=== PATIENT | female | born 1945 | race Caucasian/White ===

== ENCOUNTER 2019-10-04 09:08 | Outpatient (CLI) | payer MEDICARE, SELFPAY ==
--- NOTE | 2019-10-04 09:11 | MM_ITS ---
WS: [id number] BILATERAL DIGITAL SCREENING MAMMOGRAPHY WITH CAD CLINICAL INFORMATION: SCREENING HISTORY: Screening mammogram. No current complaints. COMPARISON: TECHNIQUE: Bilateral CC and MLO views. FINDINGS: The breasts are composed of heterogeneous fibroglandular density tissue, which can limit the detectio n of small underlying mass lesions. Lucent centered calcifications. No suspicious mass, asymmetry, ca lcifications, or architectural distortion. No evidence of malignancy. MM/[place] [id number] IMPRESSION: BI-RADS: 2-Benign FOLLOW UP: 1 Year Follow-up Recommend return to annual screening mammography.
== END 2019-10-04 09:09 | disposition home or self-care (01) ==
LOC: RADSHAW 09:08
PROVIDERS: Family Provider Physician Assistant; PCP Physician Assistant; Visit Provider Physician Assistant
DX: Z12.31 Encounter for screening mammogram for malignant neoplasm of breast (principal)
CPT/HCPCS: 77067

== ENCOUNTER 2019-10-04 12:50 | Outpatient (CLI) | payer MEDICARE, SELFPAY ==
--- NOTE | 2019-10-04 12:45 | USCV_ITS ---
Teena Santiago Age: 74 Gender: F : 1945 Exam Date: 10/04/2019 13:05 Ordering Phys: Juan C Friedman MD (Andy) ([email or web address]) Technologist: Marybeth Collins Exam Location: [facility] [place] Indication: HISTORY: Lower extremity swelling. Varicose veins. PROCEDURES: Bilateral duplex Venous Insufficiency study of the Deep and Superficial systems was carried out according to normal protocol with the patient in supine positon for deep system and dependent position for the superficial system. FINDINGS: All deep veins demonstrated compressibility without evidence of intraluminal thrombus or increased echogenicity. Spectral analysis of Doppler signals demonstrates normal response to compression maneuvers indicating patency without obstruction. Reflux determinations were made with the patient in the dependent position, the weight being on the contralateral leg. Vein measurements and reflux times are listed below were applicable. No notable reflux seen in the RIGHT lower extremity at this time. Venous reflux was demonstrated in the LEFT SFJ with a spectral display of greater than 500 milliseconds. Venous reflux is demonstrated in the LEFT greater saphenous vein with a spectral Doppler display of greater than 500 milliseconds at the level of the. Venous reflux also noted in the LEFT varicosities. No notable reflux in the LEFT SSV at this time. CONCLUSIONS 1.No evidence of DVT in the above-mentioned identifiable veins. 2.No significant reflux were noted in the deep veins. 3.On the left side, significant venous reflux of greater than 500 ms were noted at the saphenofemoral junction, proximal and mid greater saphenous vein segments 4.The varicose veins at the mid thigh level also was found to have significant reflux on the left side. 5.The venous dimensions, depth from the surface and reflux times areas mentioned above Dr Luis Littlejohn MD [facility] (Electronically Signed) Final Date: 05 October 2019 09:17 S
== END 2019-10-04 12:51 | disposition home or self-care (01) ==
PROVIDERS: Family Provider Physician Assistant; PCP Physician Assistant; Visit Provider Thoracic Surgery (Cardiothoracic Vascular Surgery)
DX: I83.893 Varicose veins of bilateral lower extremities with other complications (principal); M79.89 Other specified soft tissue disorders
CPT/HCPCS: 93970

== ENCOUNTER → 2019-10-11 08:58 | Outpatient (BNVA) | payer MEDICARE, SELFPAY | PROVIDERS: Family Provider Physician Assistant; PCP Physician Assistant; Visit Provider Anesthesiology | DX: G89.29 Other chronic pain (principal); M54.9 Dorsalgia, unspecified; M25.512 Pain in left shoulder; M79.7 Fibromyalgia; Z79.891 Long term (current) use of opiate analgesic | CPT/HCPCS: 99214 ==

== ENCOUNTER → 2019-12-07 08:48 | Outpatient (BNVA) | payer MEDICARE, SELFPAY | PROVIDERS: Family Provider Physician Assistant; PCP Physician Assistant; Visit Provider Nurse Practitioner | DX: M54.9 Dorsalgia, unspecified (principal); Z79.891 Long term (current) use of opiate analgesic | CPT/HCPCS: 99213 ==

== ENCOUNTER → 2020-05-02 09:50 | Outpatient (BNVA) | payer MEDICARE, SELFPAY | PROVIDERS: Family Provider Physician Assistant; PCP Physician Assistant; Visit Provider Anesthesiology | DX: M54.42 Lumbago with sciatica, left side (principal); M54.41 Lumbago with sciatica, right side; M54.9 Dorsalgia, unspecified; Z79.891 Long term (current) use of opiate analgesic | CPT/HCPCS: 99213; 99214 ==

== ENCOUNTER → 2020-05-16 13:45 | Outpatient (BNVA) | payer MEDICARE, SELFPAY | PROVIDERS: Family Provider Physician Assistant; PCP Physician Assistant; Referring Provider Physician Assistant; Visit Provider Dermatology | DX: L98.9 Disorder of the skin and subcutaneous tissue, unspecified (principal); Z12.83 Encounter for screening for malignant neoplasm of skin; L82.1 Other seborrheic keratosis; L29.9 Pruritus, unspecified; I83.93 Asymptomatic varicose veins of bilateral lower extremities | CPT/HCPCS: 99203; 99204 ==

== ENCOUNTER 2020-08-01 11:29 | Outpatient (CLI) | payer MEDICARE, SELFPAY ==
--- NOTE | 2020-08-01 11:36 | XR_ITS ---
WS: [id number] Lumbar spine with flexion, extension, and neutral lateral, 08/01/2020 Clinical Data: SPONDYLOLISTHESIS Comparison: None. Findings: No new compression fractures or subluxation is seen. There is loss of central vertebral body height o f 25% of the L1 vertebral body which is probably old. Anterior osteophyte formation from L1 through L 5 is seen. There is disc space narrowing at L1-L2, L2-L3, L3-L4 and L5-S1. There is probably a verteb ral body hemangioma at L3. There is subluxation of 0.7 cm of L5 on S1. Osteoporosis is present. No limitation of motion or change in subluxation is seen on flexion or extension. There is calcificat ion of the wall of the abdominal aorta but no aneurysm is seen. XR/XR lumbar spine f/e only [id number] Impression: 1. Osteoarthritis, degenerative disc disease and osteoporosis. 2. Subluxation of 0.7 cm of L5 on S1 which does not change with flexion or exte nsion. 3. Negative for limitation of motion on flexion or extension. 1. There is an old compression fracture of L1 with loss of 25% of the central v ertebral body height.
== END 2020-08-01 11:30 | disposition home or self-care (01) ==
LOC: RADWPI 11:35
PROVIDERS: PCP Physician Assistant; Visit Provider Nurse Practitioner
DX: M43.17 Spondylolisthesis, lumbosacral region (principal); M47.816 Spondylosis without myelopathy or radiculopathy, lumbar region; M81.0 Age-related osteoporosis without current pathological fracture; S33.39XA Dislocation of other parts of lumbar spine and pelvis, initial encounter; S32.010A Wedge compression fracture of first lumbar vertebra, initial encounter for closed fracture; X58.XXXA Exposure to other specified factors, initial encounter
CPT/HCPCS: 72120

== ENCOUNTER 2020-10-11 09:59 | Outpatient (CLI) | payer MEDICARE, SELFPAY ==
--- NOTE | 2020-10-11 10:18 | MM_ITS ---
WS: [id number] BILATERAL DIGITAL SCREENING MAMMOGRAPHY WITH CAD CLINICAL INFORMATION: SCREEN HISTORY: Screening mammogram. No current complaints. COMPARISON: October 04, 2019 TECHNIQUE: Bilateral CC and MLO views. FINDINGS: The breasts are composed of heterogeneous fibroglandular density tissue, which can limit the detectio n of small underlying mass lesions. No suspicious mass, asymmetry, calcifications, or architectural d istortion. No evidence of malignancy. Punctate and lucent centered calcifications. MM/[place] [id number] IMPRESSION: BI-RADS: 2-Benign FOLLOW UP: 1 Year Follow-up Recommend return to annual screening mammography.
== END 2020-10-11 10:00 | disposition home or self-care (01) ==
PROVIDERS: PCP Physician Assistant; Visit Provider Physician Assistant
DX: Z12.31 Encounter for screening mammogram for malignant neoplasm of breast (principal)
CPT/HCPCS: 77067

== ENCOUNTER 2022-02-11 13:28 | Outpatient (CLI) | payer MEDICARE, SELFPAY ==
--- NOTE | 2022-02-11 13:40 | MM_ITS ---
WS: [id number] BILATERAL 3D TOMOSYNTHESIS DIGITAL SCREENING MAMMOGRAPHY WITH CAD CLINICAL INFORMATION: SCREENING HISTORY: Screening mammogram. No current complaints. COMPARISON: October 11, 2020 TECHNIQUE: Bilateral CC and MLO views. FINDINGS: The breasts are composed of heterogeneous fibroglandular density tissue, which can limit the detectio n of small underlying mass lesions. A few incidental punctate and lucent centered calcifications. No suspicious mass, asymmetry, calcifications, or architectural distortion. No evidence of malignancy. MM/[place] [id number] IMPRESSION: BI-RADS: 2-Benign FOLLOW UP: 1 Year Follow-up Recommend return to annual screening mammography.
== END 2022-02-11 13:29 | disposition home or self-care (01) ==
LOC: RAD 13:36
PROVIDERS: PCP Physician Assistant; Visit Provider Physician Assistant
DX: Z12.31 Encounter for screening mammogram for malignant neoplasm of breast (principal)
CPT/HCPCS: 77063; 77067

== ENCOUNTER → 2022-03-03 10:39 | Outpatient (BNVA) | payer MEDICARE, SELFPAY | PROVIDERS: PCP Physician Assistant; Referring Provider Physician Assistant; Visit Provider Internal Medicine | DX: M81.0 Age-related osteoporosis without current pathological fracture (principal); E21.0 Primary hyperparathyroidism; Z87.891 Personal history of nicotine dependence | CPT/HCPCS: 99204 ==

== ENCOUNTER 2022-06-18 13:08 | Outpatient (CLI) | payer MEDICARE, SELFPAY ==
--- NOTE | 2022-06-18 14:00 | XR_ITS ---
WS: [id number] DEXA (DUAL ENERGY X-RAY ABSORPTIOMETRY) Bone mineral density was performed using a [employer] machine. HISTORY: Checking osteoporosis COMPARISON: 12/11/2016 Lumbar spine BMD (L1-L4): 1.095 g/cm2 T score: -0.7 Z score: 0.9 Total hip BMD: Left: 0.752 g/cm2. T score: -2.0 Z score: -0.3 Right: 0.717 g/cm2. T score: -2.3 Z score: -0.5 10 year probability of a major osteoporotic fracture is 35.3%. Compared to the prior study from 12/11/2016. Lumbar spine bone mineral density has increased by 9.5%. Bilateral hips bone mineral density has not changed. XR/XR DEXA axial skeleton* [id number] IMPRESSION: OSTEOPENIA based upon the WHO classification for females. Significant increase in bone mineral density within the lumbar spine since the prior study. No significant change in the hips.
== END 2022-06-18 13:09 | disposition home or self-care (01) ==
LOC: RAD 13:09
PROVIDERS: PCP Physician Assistant; Visit Provider Internal Medicine
DX: M81.0 Age-related osteoporosis without current pathological fracture (principal); M85.80 Other specified disorders of bone density and structure, unspecified site
CPT/HCPCS: 77080

== ENCOUNTER 2022-06-22 08:11 | Outpatient (CLI) | payer MEDICARE, SELFPAY ==
--- NOTE | 2022-06-22 08:46 | NM_ITS ---
WS: [id number] NUCLEAR MEDICINE PARATHYROID SESTAMIBI INDICATION: Hyperparathyroidism. Hypercalcemia. TECHNIQUE: 18.6 mCi technetium 99m sestamibi. Initial and delayed anterior planar and oblique imaging with chin markers the suprasternal notch markers. COMPARISON: Ultrasound and prior nuclear medicine parathyroid sestamibi 2017 FINDINGS: Prior ultrasound in 2017 demonstrated multinodular goiter. Normal initial salivary gland uptake on the initial images. Initial radiotracer uptake involving the RIGHT greater than LEFT thyroid gland. Intense radiotracer uptake adjacent to the lower pole of the R IGHT thyroid. On delayed imaging, this area demonstrates thyroid washout with persistent focus of inc reased activity adjacent to the lower pole RIGHT thyroid compatible with parathyroid adenoma. This is similar to 2017. No other suspicious findings. NM/NM parathyroid [id number] IMPRESSION: 1. Suspected parathyroid adenoma adjacent to the lower pole RIGHT thyroid kina lar to 2017.
== END 2022-06-22 08:12 | disposition home or self-care (01) ==
PROVIDERS: PCP Physician Assistant; Visit Provider Internal Medicine
DX: E21.3 Hyperparathyroidism, unspecified (principal)
CPT/HCPCS: 78070; A9500

== ENCOUNTER → 2022-07-02 13:00 | Outpatient (BNVA) | payer MEDICARE, SELFPAY | PROVIDERS: PCP Physician Assistant; Visit Provider Internal Medicine | DX: M81.0 Age-related osteoporosis without current pathological fracture (principal); E21.0 Primary hyperparathyroidism; M79.7 Fibromyalgia; E55.9 Vitamin D deficiency, unspecified | CPT/HCPCS: 36415; 80053; 82306; 82310; 83970; 99214 ==

== ENCOUNTER 2022-08-31 12:04 | Outpatient (CLI) | payer MEDICARE, SELFPAY ==
[2022-08-31 12:22] VITALS: BP 141/75; PULSE 68; RESP 18; TEMP 36.8; O2SAT 98
[2022-08-31] MEDS: denosumab 60 mg SDV SUBCUT (12:33)
[2022-08-31 12:39] VITALS: BP 134/72; PULSE 65; RESP 18; TEMP 36.7; O2SAT 98
== END 2022-08-31 12:05 | disposition home or self-care (01) ==
LOC: ONCMED 12:06
PROVIDERS: PCP Physician Assistant; Visit Provider Internal Medicine
DX: M81.0 Age-related osteoporosis without current pathological fracture (principal)
CPT/HCPCS: 96372; J0897

== ENCOUNTER 2022-10-06 10:03 | Outpatient (CLI) | payer MEDICARE, SELFPAY ==
--- NOTE | 2022-10-06 | MR_ITS ---
WS: [id number] MRI LUMBAR SPINE NONCONTRAST TECHNIQUE: Sagittal T1, T2 and STIR imaging. Axial T1 and T2 imaging. CLINICAL INFORMATION: LBP COMPARISON: MRI 2019 FINDINGS: Mild lumbar curve. No acute compression. No high-grade central canal stenosis. Slight anterolisthesis L5 on S1. L1-L2: Mild disc bulging with slight effacement of ventral thecal sac. Impingement subarticular reces s bilaterally. Moderate facet arthropathy. Mild mild LEFT foraminal narrowing. L2-L3: Tiny RIGHT subarticular disc protrusion. Impingement traversing RIGHT L3 nerve root in the sub articular recess. Moderate facet arthropathy. Mild RIGHT greater than RIGHT foraminal narrowing. L3-L4: Mild disc bulging with slight impingement on the RIGHT subarticular recess and traversing RIGH T L4 nerve root. Moderate facet arthropathy. Mild RIGHT foraminal narrowing. L4-L5: Mild disc bulging with moderate facet arthropathy. Moderate central canal stenosis. This is pr ogressed compared to 2019. Small facet effusions. Mild bilateral foraminal narrowing. L5-S1: Mild disc bulging with osteophytic ridging. Impingement traversing S1 nerve roots bilaterally. Mild central canal stenosis. Moderate to advanced facet arthropathy. Grade 1 anterolisthesis. Mild b ilateral foraminal narrowing. Tiny LEFT synovial cyst. Bilateral peripelvic renal cysts. Visualized pelvic bony structures: Normal. Paravertebral soft tissues: Normal. MR/MR lumbar spine wo con* [id number] IMPRESSION: 1. Mild lumbar curve. No acute compression. Grade 1 anterolisthesis L4 on L5 a nd L5 on S1 is unchanged. 2. Moderate central canal stenosis L4-L5 progressed compared to previous. Mode rate to advanced facet arthropathy at this level. Ligamentum flavum hypertrophy . Slight impingement traversing L5 nerve roots bilaterally. 3. Narrowing of the RIGHT L3-L4 subarticular recess with mild RIGHT L3-L4 fora rena narrowing. 4. Mild central canal stenosis L5-S1 with grade 1 anterolisthesis. Impingement traversing S1 nerve roots bilaterally. Stable compared to previous. 5. Mild RIGHT L2-L3, mild RIGHT L3-L4, mild bilateral L4-L5 and mild bilateral L5-S1 foraminal narrowing. 6. Moderate facet arthropathy L3-L4. Moderate to advanced facet arthropathy L4 -L5 and L5-S1.
== END 2022-10-06 10:04 | disposition home or self-care (01) ==
PROVIDERS: PCP Physician Assistant; Visit Provider Physician Assistant
DX: M48.062 Spinal stenosis, lumbar region with neurogenic claudication (principal); M47.816 Spondylosis without myelopathy or radiculopathy, lumbar region; M48.07 Spinal stenosis, lumbosacral region
CPT/HCPCS: 72148

== ENCOUNTER → 2022-11-11 14:05 | Outpatient (BNVA) | payer MEDICARE, SELFPAY | PROVIDERS: PCP Physician Assistant; Visit Provider Internal Medicine | DX: E21.0 Primary hyperparathyroidism (principal); M81.0 Age-related osteoporosis without current pathological fracture; E55.9 Vitamin D deficiency, unspecified | CPT/HCPCS: 99214 ==

== ENCOUNTER 2022-11-16 08:31 | Outpatient (CLI) | payer MEDICARE, SELFPAY ==
[2022-11-16 09:43] LABS: Anion Gap 11.9 (5-19); Blood Urea Nitrogen 25 mg/dL (8-23); Calcium 10.6 mg/dL (8.5-10.5); Carbon Dioxide 27 mmol/L (22-29); Chloride 106 mmol/L (98-107); Glucose 80 mg/dL (65-115); Osmolality Calculated 293 mOsm/kg (285-295); Potassium 4.9 mmol/L (3.5-5.1); Sodium 140 mmol/L (136-145)
[2022-11-16 10:10] LABS: Calcium 10.9 mg/dL (8.5-10.5)
== END 2022-11-16 08:32 | disposition home or self-care (01) ==
LOC: LAB 08:35
PROVIDERS: PCP Physician Assistant; Visit Provider Internal Medicine
DX: E21.0 Primary hyperparathyroidism (principal)
CPT/HCPCS: 36415; 80048; 82310; 83970

== ENCOUNTER → 2023-02-25 15:40 | Outpatient (BNVA) | payer MEDICARE, SELFPAY | PROVIDERS: PCP Physician Assistant; Visit Provider Dermatology | DX: L57.0 Actinic keratosis (principal); L82.1 Other seborrheic keratosis; S20.369A Insect bite (nonvenomous) of unspecified front wall of thorax, initial encounter; W57.XXXA Bitten or stung by nonvenomous insect and other nonvenomous arthropods, initial encounter; L81.4 Other melanin hyperpigmentation | CPT/HCPCS: 99213 ==

== ENCOUNTER 2023-03-24 20:00 | Outpatient (CLI) | payer MEDICARE, SELFPAY | END 2023-03-24 20:01 | disposition home or self-care (01) | LOC: SLEEP 03-25 06:22 | PROVIDERS: PCP Physician Assistant; Visit Provider Anesthesiology Pain Medicine | DX: G47.10 Hypersomnia, unspecified (principal) | CPT/HCPCS: 95810 ==

== ENCOUNTER 2023-04-05 11:30 | Oncology outpatient (recurring) (ONCR) | payer MEDICARE, SELFPAY ==
[2023-03-31 10:55] VITALS: BP 120/55; PULSE 57; RESP 17; TEMP 36.4; O2SAT 94
--- NOTE | 2023-03-31 11:04 | PC.NURSE ---
venipuncture in the right AC
[2023-03-31 11:27] LABS: Calcium 10.2 mg/dL (8.5-10.5)
[2023-03-31] MEDS: denosumab 60 mg SDV SUBCUT (12:01)
[2023-03-31 12:09] VITALS: BP 128/71; PULSE 65; RESP 17; TEMP 36.3; O2SAT 94
== END 2023-04-19 23:59 | disposition home or self-care (01) ==
PROVIDERS: Internal Medicine; PCP Physician Assistant; Visit Provider Internal Medicine Medical Oncology
DX: Z53.9 Procedure and treatment not carried out, unspecified reason (principal)
CPT/HCPCS: 36415; 82310; 96401; J0897

== ENCOUNTER → 2023-07-02 09:04 | Outpatient (BNVA) | payer MEDICARE, SELFPAY | PROVIDERS: PCP Physician Assistant; Visit Provider Internal Medicine | DX: M79.7 Fibromyalgia (principal); E21.0 Primary hyperparathyroidism; M81.0 Age-related osteoporosis without current pathological fracture; E55.9 Vitamin D deficiency, unspecified; R41.3 Other amnesia; G62.9 Polyneuropathy, unspecified | CPT/HCPCS: 36415; 80053; 82306; 82310; 83970; 99214 ==

== ENCOUNTER 2023-07-09 14:50 | Outpatient (CLI) | payer MEDICARE, SELFPAY ==
--- NOTE | 2023-07-09 14:58 | MM_ITS ---
WS: [id number] BILATERAL 3D TOMOSYNTHESIS DIGITAL SCREENING MAMMOGRAPHY WITH CAD CLINICAL INFORMATION: SCREENING HISTORY: Screening mammogram. No current complaints. COMPARISON: None. TECHNIQUE: Bilateral CC and MLO views. FINDINGS: The breasts are composed of heterogeneous fibroglandular density tissue, which can limit the detectio n of small underlying mass lesions. No suspicious mass, asymmetry, calcifications, or architectural d istortion. No evidence of malignancy. Incidental punctate calcifications. IMPRESSION: MM/[place] [id number] BI-RADS: 2-Benign FOLLOW UP: 1 Year Follow-up Recommend return to annual screening mammography.
== END 2023-07-09 14:51 | disposition home or self-care (01) ==
LOC: RAD 14:51
PROVIDERS: PCP Physician Assistant; Visit Provider Physician Assistant
DX: Z12.31 Encounter for screening mammogram for malignant neoplasm of breast (principal)
CPT/HCPCS: 77063; 77067

== ENCOUNTER → 2023-09-01 08:32 | Outpatient (BNVA) | payer MEDICARE, SELFPAY | PROVIDERS: PCP Physician Assistant; Visit Provider Psychiatry & Neurology Neurology | DX: G62.9 Polyneuropathy, unspecified (principal); I72.9 Aneurysm of unspecified site; Z82.49 Family history of ischemic heart disease and other diseases of the circulatory system | CPT/HCPCS: 99203 ==

== ENCOUNTER 2023-09-23 12:00 | Outpatient (CLI) | payer MEDICARE, SELFPAY ==
--- NOTE | 2023-09-23 12:30 | MR_ITS ---
WS: [email or web address] MRA HEAD TECHNIQUE: Axial 3-D TOF images obtained with axial images and axial, sagittal, and coronal 2-D refor matted images. CLINICAL INFORMATION: G62.9 - Polyneuropathy, unspecified COMPARISON: MRA 12/30/2010 FINDINGS: Images degraded by motion artifact. Distal vertebral arteries are patent. Basilar artery is patent. Normal vascularity to the [employer] territo ry bilaterally. Both ICAs are patent at the skull base. Tortuous ectatic LEFT supraclinoid ICA with irregular and codey notic LEFT A1 segment. Mild stenosis in the distal supraclinoid ICA with poststenotic dilatation. LEF T MCA is patent. Normal vascularity to the RICH and RIGHT MCA territory. IMPRESSION: Images degraded by motion artifact. 1. Tortuous lobulated distal supraclinoid ICA with ectasia at the RICH and MCA bifurcation. This is u nchanged in appearance compared to the prior examinations. 2. Mild stenosis in the distal supraclinoid ICA just prior to the bifurcation. 3. Mild segmental stenosis in the A1 segment with irregularity is unchanged. 4. Distal vertebral arteries are patent. Basilar artery is patent. 5. No other suspicious findings considering motion artifact.
--- NOTE | 2023-09-23 12:45 | MR_ITS ---
WS: [email or web address] MRI HEAD WITHOUT CONTRAST TECHNIQUE: Sagittal T1, T2 axial, T2 axial FLAIR, axial and coronal T1 images, axial susceptibility w eighted imaging, axial diffusion weighted images, and coronal T2 images were obtained. CLINICAL INFORMATION: G62.9 - Polyneuropathy, unspecified COMPARISON: MRI 2018 FINDINGS: No evidence of restricted diffusion to suggest acute ischemia. Ventricular system and basal cisterns are patent. Normal posterior fossa. Normal vascular flow voids at the skull base. No extra-axial flui d collections. No evidence of mass or mass effect. Moderate small vessel changes. Small vessel change s in the aden. Mild parenchymal volume loss. Small retention cyst or polyp LEFT maxillary sinus. Mild mucosal thickening in the ethmoid air cells. Mastoid air cells are well aerated. Normal optic chiasm and pituitary infundibulum. Mild symmetric atrophy temporal lobes and hippocampal formations. IMPRESSION: 1. No evidence of restricted diffusion to suggest acute ischemia. 2. Moderate small vessel changes slightly progressed compared to 2018. Mild parenchymal volume loss. Small vessel changes in the aden. 3. Tortuous ectatic LEFT supraclinoid ICA and proximal LEFT MCA similar in appearance to the prior e xaminations. See MRA for additional detail. 4. No other acute findings.
== END 2023-09-23 12:01 | disposition home or self-care (01) ==
LOC: RAD 12:00
PROVIDERS: PCP Physician Assistant; Visit Provider Psychiatry & Neurology Neurology
DX: G62.9 Polyneuropathy, unspecified (principal); R41.3 Other amnesia; Z82.49 Family history of ischemic heart disease and other diseases of the circulatory system; I67.89 Other cerebrovascular disease; I77.89 Other specified disorders of arteries and arterioles; I65.22 Occlusion and stenosis of left carotid artery
CPT/HCPCS: 70544; 70551

== ENCOUNTER 2023-10-26 10:17 | Outpatient (CLI) | payer MEDICARE, SELFPAY ==
[2023-10-26 11:09] LABS: Alanine Aminotransferase 11 U/L (0-33); Albumin Level 4.1 g/dL (3.5-5.2); Alkaline Phosphatase 57 U/L (35-105); Aspartate Amino Transferase 11 U/L (0-32); Blood Urea Nitrogen 14 mg/dL (8-23); Calcium 10.8 mg/dL (8.5-10.5); Carbon Dioxide 27 mmol/L (22-29); Chloride 104 mmol/L (98-107); Globulin 2.9 g/dL (1.3-4.6); Glucose 100 mg/dL (65-115); Osmolality Calculated 287 mOsm/kg (285-295); Sodium 138 mmol/L (136-145); Total Bilirubin 0.3 mg/dL (0.15-1.2)
[2023-10-26 11:10] LABS: Calcium 10.9 mg/dL (8.5-10.5)
[2023-10-26 11:13] LABS: Parathyroid Hormone 112.1 pg/mL (15-65)
[2023-10-26 11:21] LABS: 25 Hydroxy Vitamin D 27 ng/mL (30-100)
== END 2023-10-26 10:18 | disposition home or self-care (01) ==
PROVIDERS: PCP Physician Assistant; Visit Provider Internal Medicine
DX: M79.7 Fibromyalgia (principal); M81.0 Age-related osteoporosis without current pathological fracture; E21.0 Primary hyperparathyroidism
CPT/HCPCS: 36415; 80053; 82306; 82310; 83970

== ENCOUNTER → 2023-11-01 09:01 | Outpatient (BNVA) | payer MEDICARE, SELFPAY | PROVIDERS: PCP Physician Assistant; Visit Provider Internal Medicine | DX: M79.7 Fibromyalgia (principal); E21.0 Primary hyperparathyroidism; M81.0 Age-related osteoporosis without current pathological fracture; E55.9 Vitamin D deficiency, unspecified; R41.3 Other amnesia; G62.9 Polyneuropathy, unspecified | CPT/HCPCS: 99214 ==

== ENCOUNTER → 2023-11-05 13:33 | Outpatient (BNVA) | payer MEDICARE, SELFPAY | PROVIDERS: PCP Physician Assistant; Visit Provider Psychiatry & Neurology Neurology | DX: G62.89 Other specified polyneuropathies (principal) | CPT/HCPCS: 95910 ==

== ENCOUNTER 2023-11-17 08:51 | Oncology outpatient (recurring) (ONCR) | payer MEDICARE, SELFPAY ==
[2023-11-17 09:22] VITALS: BP 148/66; PULSE 76; RESP 18; TEMP 37.2; O2SAT 93
[2023-11-17] MEDS: denosumab 60 mg SDV SUBCUT (09:23)
== END 2023-11-18 23:59 | disposition home or self-care (01) ==
LOC: ONCMED 08:52
PROVIDERS: PCP Physician Assistant; Visit Provider Internal Medicine Medical Oncology
DX: M81.0 Age-related osteoporosis without current pathological fracture (principal)
CPT/HCPCS: 96372; J0897

== ENCOUNTER → 2023-11-25 11:36 | Outpatient (BNVA) | payer MEDICARE, SELFPAY | PROVIDERS: PCP Physician Assistant; Visit Provider Psychiatry & Neurology Neurology | DX: G62.9 Polyneuropathy, unspecified (principal) | CPT/HCPCS: 99212 ==

== ENCOUNTER 2023-12-01 14:02 | Outpatient (CLI) | payer MEDICARE, SELFPAY ==
[2023-12-01 15:20] LABS: Magnesium 2.2 mg/dL (1.7-2.3)
[2023-12-01 15:36] LABS: Vitamin B12 407 pg/mL (232-1245)
[2023-12-01 23:58] LABS: Folate Level 12.3 ng/mL (4.8-37.3)
[2023-12-02 10:00] LABS: PROTEIN, TOTAL 6.3 g/dL (6.1-8.1)
[2023-12-03 09:39] LABS: ALPHA 1 GLOBULIN 0.2 g/dL (0.2-0.3); ALPHA 2 GLOBULIN 0.7 g/dL (0.5-0.9); BETA 1 GLOBULIN 0.4 g/dL (0.4-0.6); BETA 2 GLOBULIN 0.3 g/dL (0.2-0.5); GAMMA GLOBULIN 0.7 g/dL (0.8-1.7)
[2023-12-05 07:29] LABS: Methylmalonic Acid 188 nmol/L (87-318)
== END 2023-12-01 14:03 | disposition home or self-care (01) ==
LOC: LAB 14:02
PROVIDERS: PCP Physician Assistant; Visit Provider Psychiatry & Neurology Neurology
DX: G62.9 Polyneuropathy, unspecified (principal)
CPT/HCPCS: 36415; 82607; 82746; 83735; 83921; 84155; 84165; 86334

== ENCOUNTER → 2024-02-29 15:00 | Outpatient (BNVA) | payer MEDICARE, SELFPAY | PROVIDERS: PCP Physician Assistant; Visit Provider Psychiatry & Neurology Neurology | DX: G62.9 Polyneuropathy, unspecified (principal) | CPT/HCPCS: 99212 ==

== ENCOUNTER 2024-03-15 09:25 | Oncology outpatient (recurring) (ONCR) | payer MEDICARE, SELFPAY ==
--- NOTE | 2024-03-15 09:45 | USCV_ITS ---
Teena Santiago Age: 78 Gender: F : 1945 Exam Date: 03/15/2024 09:42 Ordering Phys: Reji Webb MD Technologist: GENET Exam Location: [facility] [place] Indication: Left Shoulder Pain Risk Factors: Previous Vascular Surgery: Right BP: 137.00 / 78.00 Left BP: 144.00 / 84.00 RIGHT LEFT PSV PSV (cm/s) (cm/s) Waveform Waveform Triphasic 117.0 Subclavian Proximal 115.0 Triphasic Triphasic 53.0 Subclavian Distal 97.0 Triphasic Triphasic 52.0 Axillary 57.0 Triphasic Triphasic 137.0 Brachial Proximal 109.0 Triphasic Triphasic 122.0 Brachial Mid 121.0 Triphasic Triphasic 127.0 Brachial at AC 134.0 Triphasic Triphasic 71.0 Radial Proximal 89.0 Triphasic Triphasic 98.0 Radial at Wrist 62.0 Triphasic Triphasic 90.0 Ulnar Proximal 65.0 Triphasic Triphasic 73.0 Ulnar at Wrist 64.0 Triphasic FINDINGS Triphasic Doppler waveforms bilaterally Normal Doppler flow velocities bilaterally CONCLUSIONS Patent subclavian, axillary, brachial, radial and ulnar arteries bilaterally Normal Doppler waveforms and velocities suggesting no significant arterial obstruction Dr Luis Littlejohn MD [facility] (Electronically Signed) Final Date: 16 March 2024 22:21 S
== END 2024-03-19 23:59 | disposition home or self-care (01) ==
LOC: RAD 09:27 → ONCMED 04-04 07:24
PROVIDERS: PCP Physician Assistant; Visit Provider Psychiatry & Neurology Neurology
DX: G89.29 Other chronic pain (principal); M25.512 Pain in left shoulder; I70.213 Atherosclerosis of native arteries of extremities with intermittent claudication, bilateral legs; Z53.9 Procedure and treatment not carried out, unspecified reason
CPT/HCPCS: 93930

== ENCOUNTER → 2024-06-12 09:30 | Outpatient (BNVA) | payer MEDICARE, SELFPAY | PROVIDERS: PCP Physician Assistant; Visit Provider Internal Medicine | DX: E21.0 Primary hyperparathyroidism (principal); M81.0 Age-related osteoporosis without current pathological fracture; E55.9 Vitamin D deficiency, unspecified; M79.7 Fibromyalgia; R41.3 Other amnesia; G62.9 Polyneuropathy, unspecified | CPT/HCPCS: 99214 ==

== ENCOUNTER 2024-06-14 10:24 | Oncology outpatient (recurring) (ONCR) | payer MEDICARE, SELFPAY ==
[2024-06-14] MEDS: denosumab 60 mg SDV SUBCUT (11:09)
[2024-06-14 11:38] LABS: Albumin Level 4.1 g/dL (3.5-5.2); Calcium 10.6 mg/dL (8.5-10.5)
[2024-06-14 11:52] LABS: 25 Hydroxy Vitamin D 54 ng/mL (30-100)
== END 2024-06-19 23:59 | disposition home or self-care (01) ==
LOC: ONCMED 10:25
PROVIDERS: Internal Medicine; PCP Physician Assistant; Visit Provider Psychiatry & Neurology Neurology
DX: Z79.899 Other long term (current) drug therapy (principal); M81.0 Age-related osteoporosis without current pathological fracture
CPT/HCPCS: 82040; 82306; 82310; 82565; 96372; J0897

== ENCOUNTER 2024-06-20 11:26 | Outpatient (CLI) | payer MEDICARE, SELFPAY ==
[2024-06-20 12:40] LABS: Calcium 10.2 mg/dL (8.5-10.5)
[2024-06-20 12:45] LABS: Parathyroid Hormone 169.3 pg/mL (15-65)
[2024-06-20 13:32] LABS: 25 Hydroxy Vitamin D 61 ng/mL (30-100); Alanine Aminotransferase 10 U/L (0-33); Albumin Level 4.2 g/dL (3.5-5.2); Alkaline Phosphatase 68 U/L (35-105); Anion Gap 14.5 (5-19); Aspartate Amino Transferase 11 U/L (0-32); Blood Urea Nitrogen 17 mg/dL (8-23); Calcium 10.2 mg/dL (8.5-10.5); Carbon Dioxide 25 mmol/L (22-29); Chloride 101 mmol/L (98-107); Globulin 2.8 g/dL (1.3-4.6); Glucose 94 mg/dL (65-115); Osmolality Calculated 283 mOsm/kg (285-295); Potassium 4.5 mmol/L (3.5-5.1); Sodium 136 mmol/L (136-145); Total Bilirubin 0.4 mg/dL (0.15-1.2)
== END 2024-06-20 11:27 | disposition home or self-care (01) ==
LOC: LAB 11:28
PROVIDERS: PCP Physician Assistant; Visit Provider Internal Medicine
DX: M79.7 Fibromyalgia (principal); E21.0 Primary hyperparathyroidism; M81.0 Age-related osteoporosis without current pathological fracture; E55.9 Vitamin D deficiency, unspecified
CPT/HCPCS: 36415; 80053; 82306; 82310; 83970

== ENCOUNTER → 2024-08-29 13:31 | Outpatient (BNVA) | payer MEDICARE, SELFPAY | PROVIDERS: PCP Physician Assistant; Visit Provider Psychiatry & Neurology Neurology | DX: I70.213 Atherosclerosis of native arteries of extremities with intermittent claudication, bilateral legs (principal); I87.2 Venous insufficiency (chronic) (peripheral); G62.9 Polyneuropathy, unspecified; M25.512 Pain in left shoulder; G89.29 Other chronic pain | CPT/HCPCS: 99212 ==

== ENCOUNTER 2024-11-01 09:02 | Outpatient (CLI) | payer MEDICARE, SELFPAY ==
--- NOTE | 2024-11-01 | MM_ITS ---
WS: [id number] BILATERAL SCREENING DIGITAL TOMOSYNTHESIS MAMMOGRAM WITH CAD HISTORY: SCREENING COMPARISON: 07/09/2023, 02/11/2022 and 10/04/2019 Bilateral CC and MLO views with tomosynthesis and synthetic mammography submitted. Computer aided detection analyzed. Breast composition: The breasts are heterogeneously dense, which may obscure small masses. No suspicious masses, microcalcifications or architectural distortion. Scattered asymmetries are stable over multiple years. Benign calcifications in each breast. MM/MM scr tomosynthesis [id number] IMPRESSION: BI-RADS: 2 - Benign FOLLOW UP: 1 Year Follow-up
== END 2024-11-01 09:03 | disposition home or self-care (01) ==
LOC: RAD 09:03
PROVIDERS: PCP Physician Assistant; Visit Provider Physician Assistant
DX: Z12.31 Encounter for screening mammogram for malignant neoplasm of breast (principal); R92.333 Mammographic heterogeneous density, bilateral breasts; N64.89 Other specified disorders of breast; R92.1 Mammographic calcification found on diagnostic imaging of breast
CPT/HCPCS: 77063; 77067

== ENCOUNTER → 2025-01-02 11:05 | Outpatient (BNVA) | payer MEDICARE, SELFPAY | PROVIDERS: PCP Physician Assistant; Visit Provider Internal Medicine | DX: M79.7 Fibromyalgia (principal); M81.0 Age-related osteoporosis without current pathological fracture; E21.0 Primary hyperparathyroidism; E55.9 Vitamin D deficiency, unspecified; R41.3 Other amnesia; G62.9 Polyneuropathy, unspecified | CPT/HCPCS: 36415; 80053; 82306; 82310; 83970; 84439; 84443 ==

== ENCOUNTER 2025-02-01 12:20 | Oncology outpatient (recurring) (ONCR) | payer MEDICARE, SELFPAY ==
[2025-02-01] MEDS: denosumab 60 mg SDV SUBCUT (13:05)
== END 2025-02-17 23:59 | disposition home or self-care (01) ==
PROVIDERS: PCP Physician Assistant; Visit Provider Internal Medicine
DX: M81.0 Age-related osteoporosis without current pathological fracture (principal); Z79.899 Other long term (current) drug therapy
CPT/HCPCS: 96401; J0897

== ENCOUNTER → 2025-07-03 09:28 | Outpatient (BNVA) | payer MEDICARE, SELFPAY | PROVIDERS: PCP Physician Assistant; Visit Provider Internal Medicine | DX: E21.0 Primary hyperparathyroidism (principal); M81.0 Age-related osteoporosis without current pathological fracture; E55.9 Vitamin D deficiency, unspecified; R41.3 Other amnesia; G62.9 Polyneuropathy, unspecified; M79.7 Fibromyalgia; S09.90XA Unspecified injury of head, initial encounter; W19.XXXA Unspecified fall, initial encounter | CPT/HCPCS: 99215 ==

== ENCOUNTER 2025-07-24 09:01 | Outpatient (CLI) | payer MEDICARE, SELFPAY ==
[2025-07-24 09:54] LABS: Alanine Aminotransferase 16 U/L (0-33); Albumin Level 4.1 g/dL (3.5-5.2); Alkaline Phosphatase 65 U/L (35-105); Anion Gap 12.6 (5-19); Aspartate Amino Transferase 19 U/L (0-32); Blood Urea Nitrogen 21 mg/dL (8-23); Calcium 10.6 mg/dL (8.5-10.5); Carbon Dioxide 26 mmol/L (22-29); Chloride 106 mmol/L (98-107); Globulin 2.7 g/dL (1.3-4.6); Glucose 94 mg/dL (65-115); Osmolality Calculated 293 mOsm/kg (285-295); Potassium 4.6 mmol/L (3.5-5.1); Sodium 140 mmol/L (136-145); Total Protein 6.8 g/dL (6.6-8.7)
== END 2025-07-24 09:02 | disposition home or self-care (01) ==
PROVIDERS: PCP Physician Assistant; Visit Provider Internal Medicine
DX: E55.9 Vitamin D deficiency, unspecified (principal)
CPT/HCPCS: 36415; 80053; 82306

== ENCOUNTER 2025-07-31 10:48 | Oncology outpatient (recurring) (ONCR) | payer MEDICARE, SELFPAY ==
[2025-07-31] MEDS: denosumab 60 mg SDV (Infusion Clinic Only) SUBCUT (12:25)
== END 2025-08-19 23:59 | disposition home or self-care (01) ==
PROVIDERS: PCP Physician Assistant; Visit Provider Internal Medicine
DX: M81.0 Age-related osteoporosis without current pathological fracture (principal); Z79.899 Other long term (current) drug therapy
CPT/HCPCS: 96372; J0897

== ENCOUNTER 2025-09-11 12:42 | Outpatient (CLI) | payer MEDICARE, SELFPAY ==
--- NOTE | 2025-09-11 13:00 | XR_ITS ---
WS: [email or web address] DEXA (DUAL ENERGY X-RAY ABSORPTIOMETRY) Bone mineral density was performed using a [employer] machine. HISTORY: osteoporosis COMPARISON: 06/18/2022 Lumbar spine BMD (L1-L4): 1.166 g/cm2 T score: -0.1 Z score: 1.6 Total hip BMD: Left: 0.789 g/cm2. T score: -1.7 Z score: 0.2 Right: 0.792 g/cm2. T score: -1.7 Z score: 0.3 10 year probability of a major osteoporotic fracture is 22.6%. Compared to the prior study from 06/18/2022. Lumbar spine bone mineral density has increased by 6.5%. Bilateral hips bone mineral density has increased by 7.6%. XR/XR DEXA axial skeleton* [id number] IMPRESSION: OSTEOPENIA based upon the WHO classification for females. Significant increase in bone mineral density within the lumbar spine and hips s jodi the prior study.
== END 2025-09-11 12:43 | disposition home or self-care (01) ==
LOC: RAD 12:45
PROVIDERS: PCP Physician Assistant; Visit Provider Internal Medicine
DX: Z13.820 Encounter for screening for osteoporosis (principal); M81.0 Age-related osteoporosis without current pathological fracture; M85.88 Other specified disorders of bone density and structure, other site
CPT/HCPCS: 36415; 77080; 80053; 82306